=== PATIENT | female | born 2000 | race Caucasian/White ===

== ENCOUNTER 2022-09-25 12:14 | Emergency (ER) | payer OTHER, SELFPAY ==
[2022-09-25 13:43] VITALS: BP 116/75; PULSE 79; RESP 18; TEMP 36.2; O2SAT 100
--- NOTE | 2022-09-25 14:30 | ED.GENADULT ---
HPI - General Adult General Chief complaint: Upper Respiratory Infection Stated complaint: Rt Ear Irritation,Sore Throat,Congestion Time Seen by Provider: 09/25/22 14:30 Source: patient Mode of arrival: ambulatory Limitations: no limitations History of Present Illness HPI narrative: female patient presents to [facility] with complaints of right ear pain, sore throats common runny nose and congestion for the past 5 days. The patient states symptoms started Monday with flu-like symptoms. Patient states that this morning she noticed some right ear pain and continues to have sore throat. Patient states she has been taking [id number] Tylenol and ibuprofen for her pain. Patient denies any recent fevers. Denies any discharge coming from the ears. Related Data Home Medications Medication Instructions Recorded Confirmed escitalopram oxalate 5 mg tablet 5 mg PO DAILY 09/25/22 09/25/22 norgestimate 0.25 mg-ethinyl 1 tablet PO DAILY 09/25/22 09/25/22 estradiol 35 mcg tablet (Estarylla) Allergies Allergy/AdvReac Type Severity Reaction Status Date / Time No Known Allergies Allergy Verified 09/25/22 14:32 Review of Systems Review of Systems: CONSTITUTIONAL: Denies fever, chills, or sweats. EYES: Denies visual changes, redness, or discharge. ENT: Positive rhinorrhea, congestion, sore throat, and R otalgia. CARDIOVASCULAR: Denies chest pain, palpitations, or edema. RESPIRATORY: Positive cough, denies dyspnea. GASTROINTESTINAL: Denies abdominal pain, nausea, vomiting, or diarrhea. GENITOURINARY: Denies dysuria or hematuria. SKIN: Denies rash or itching. MUSCULOSKELETAL: Denies back pain, joint pain, or myalgia. NEUROLOGIC: Denies headache, numbness, or weakness. PSYCHIATRIC: Denies anxiety or depression. PMFSH Comments At the time of my signature I agree with nursing past medical history, surgical, social, and family history. There is no relevant family history pertinent to the presenting complaint. Exam Narrative: GENERAL: Well-appearing, well-nourished, and in no acute distress. HEAD: Normocephalic, atraumatic. EYES: PERRLA and EOMI. ENT: Nares with erythema and edema noted bilaterally, no rhinorrhea or epistaxis. Mucous membranes moist. posterior pharynx no erythema, tonsillar enlargement, exudates or lesions present. The right TM does appear to have a bit of fluid behind it but there was no erythema, no bulging no evidence of infection at this time. NECK: Supple. No lymphadenopathy CHEST: Clear to auscultation. No respiratory distress. Patient will talk clear complete sentences HEART: Regular rate and rhythm. No murmur heard. Normal peripheral pulses. ABDOMEN: Soft, nontender, nondistended, normal active bowel sounds. EXTREMITIES: Normal range of motion. No edema. SKIN: Warm, dry, no rash. NEURO: No focal deficits. Alert and oriented x3. Course Course Level of Care: Express Care Visit Vital Signs Vital signs: Vital Signs Temperature 36.2 C L 09/25/22 13:43 Pulse Rate 79 09/25/22 13:43 Respiratory Rate 18 09/25/22 13:43 Blood Pressure 116/75 09/25/22 13:43 Pulse Oximetry 100 09/25/22 13:43 Oxygen Delivery Room Air 09/25/22 13:43 Temperature 36.2 C L 09/25/22 13:43 Pulse Rate 79 09/25/22 13:43 Respiratory Rate 18 09/25/22 13:43 Blood Pressure 116/75 09/25/22 13:43 Pulse Oximetry 100 09/25/22 13:43 Oxygen Delivery Room Air 09/25/22 13:43 Vital signs reviewed Medical Decision Making MDM Narrative Medical decision making narrative: Plan of care for patient is to discharge home with Flonase and Zyrtec to help with the sinus drainage to the ear. Discussed with her other daughter does not seem to be infection at this time however there does seem to be fluid present and which case I would try to decrease the fluid to the ear to help prevent infection. Discussed with patient as she has had symptoms longer than 72 hours at this time there is no reason to tae
== END 2022-09-25 14:55 | disposition home or self-care (01) ==
PROVIDERS: Emergency Provider Nurse Practitioner Family; PCP Family Medicine
DX: B34.9 Viral infection, unspecified (principal); J02.9 Acute pharyngitis, unspecified; H73.891 Other specified disorders of tympanic membrane, right ear; F41.9 Anxiety disorder, unspecified; F32.A Depression, unspecified
CPT/HCPCS: 87081; 99213; G0463

== ENCOUNTER 2023-07-03 10:04 | Outpatient (CLI) | payer BC, SELFPAY ==
--- NOTE | 2023-07-05 13:09 | WPDHOMESLEEP ---
Sleep Study - Home Unattended Date of Study: 07/03/23 Ordering Provider: KARL Nuñez Interpreting Provider: Susie Burroughs MD Home Sleep Study Type: Watch PAT Height: 1.75 m Weight: 63.503 kg Body Mass Index: 20.7 Neck Circumference (inches): 12.5 [place]: 13 Reason for Sleep Study Excessive daytime sleepiness Sleep History Lisa Maddox is a 23-year-old female with excessive daytime sleepiness which is interfering with her ability to work. 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 She thought that her excessive sleepiness would improve after completing nursing school but this has not occurred. 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 She drinks coffee to help stay awake with no benefit. She sleeps well while she is asleep. She wakes up exhausted no matter how much sleep she gets. She has tried to adjust her sleep schedule in different ways, however she always wakes up feeling exhausted. She tried to cut back on caffeine which did not help. She has tried Vitamin B12 supplements, no help. 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 and sleeps until 4:00 p.m.. If she does not have to work on waking in the afternoon after a mold shifter, her sleep schedule returns to normal, sleeping throughout the night. She does not have nocturia. She does not wake during her sleep whether she sleeping in the daytime or at night time. She had a neurologic workup in 2018 at [facility] for syncopal episodes. Her EEG was negative. The neurologist felt that her symptoms may be related to orthostatic hypotension. She had a sleep study at the time, we do not have those records. She does not awaken from sleep short of breath, does not have heartburn belching or coughing, does not have significant snoring and rarely has difficulty sleeping when she has a cold. There is no gasping at night, no sweating, no palpitations. She is frequently falling asleep while she is supposed to be awake, never falls asleep involuntarily or while driving. She does not have loss of muscle tone with strong emotion. She occasionally has difficulties at work due to excessive sleepiness. She does not feel paralyzed on waking or falling asleep. She rarely has vivid dreamlike scenes upon awakening or falling asleep. She does not feel afraid to go to sleep. She rarely has nightmares. She occasionally remembers her dreams, occasionally has racing thoughts. She rarely feels sad or depressed. She occasionally feels anxiety. She rarely has muscular tension or notices parts of her body jerking. She occasionally kicks at night, never has crawling or aching feelings in her legs or any kind of leg pain at night. She does not have morning jaw pain. She does not grind her teeth at night. She rarely is bothered by pain during the day. She is not awakened by pain at night. She occasionally wakes up feeling stiff in the morning, occasionally wakes up with sore achy muscles and pain in the neck and spine. She has memory problems and concentration difficulties. She has fatigue and headaches. She is drowsy for 1 to 2 hours after waking. She feels better in the morning compared to other times of day. On her days off her normal bedtime is 9:00 p.m. to 10:00 p.m. falling asleep within 15-30 minutes typically waking once or not at all at night just to reposition and check the clock. She is able to return to sleep in 5 minutes. She wakes in the morning at 5:00 a.m. if she has to work and at 8:00 a.m. on days she is off. On weekends, she keeps the same schedule. She sleeps with a dog in her bed. She is often too tired to go out with friends and family. On days off work, she takes a nap for 2-1/2 hours. Naps are not refreshing. Habits: No tobacco. Caffeine: 2 servings per day. No alcohol or recreational substances. PMFSH Past Medi
[2023-07-05 14:40] VITALS: BMI 20.7
== END 2023-07-04 11:41 | disposition home or self-care (01) ==
PROVIDERS: PCP Family Medicine; Visit Provider Physician Assistant
DX: G47.10 Hypersomnia, unspecified (principal)
CPT/HCPCS: 95800